=== PATIENT | male | born 1955 | race Caucasian/White ===

== ENCOUNTER 2023-10-14 10:18 | Emergency (ER) | payer MEDICARE, OTHER, SELFPAY ==
[2023-10-14 10:48] VITALS: BP 137/83
--- NOTE | 2023-10-14 11:35 | ED.GENMED ---
History of Present Illness
General
Chief Complaint: Skin Problem
Time Seen by Provider: 10/14/23 11:14
History of Present Illness
History of Present Illness:
68-year-old male presents the emergency department for evaluation of a 'abscess' in his rectal area that is been present for several months. States he has attempted to 'poke it' but it has not been successful. Denies any significant pain
Review of Systems
Review of Systems
Allergies reviewed?: Yes
All Other Systems: ROS reviewed and negative except as documented in HPI and ROS
Phy Exam
Physical Exam
Physical Exam:
GEN: Well appearing, NAD, WDWN
HEENT: Oral mucosa moist, no scleral icterus
Cardiac: Regular rate
Lung: No respiratory distress, no tachypnea
Rectal: Subcentimeter flesh-colored lesion to the left anus, nonfluctuant, nontender, no exudate present
MSK: No gross deformity or injuries
Skin: Good color, no pallor or jaundice, no rashes
Neuro: AO x3, moves all extremities freely
Psych: Calm, cooperative
Course
Vital Signs
Initial and Last Documented VS:
Initial Vital Signs
Temp Pulse Resp BP Pulse Ox
98.3 F 56 16 137/83 96
10/14/23 10:48 10/14/23 10:48 10/14/23 10:48 10/14/23 10:48 10/14/23 10:48
Last Documented Vital Signs
Temp Pulse Resp BP Pulse Ox
98.3 F 56 16 137/83 96
10/14/23 10:48 10/14/23 10:48 10/14/23 10:48 10/14/23 10:48 10/14/23 10:48
MDM/Problems Addressed
MDM/Problems Addressed:
Clearly not a perirectal abscess, would benefit from outpatient colorectal surgery evaluation
*Critical Care Note
Total Time (30-74mins, 75-104mins- exclusive of procedures): Not Applicable
ED Attending Note
-
Portions of this chart may have been created with voice recognition software.� Occasional wrong word or��sound alike� substitutions may have occurred due to the inherent limitations of voice recognition software.
Discharge Plan
Departure
Patient Disposition: Home (Routine Discharge)
Date of Disposition: 10/14/23
Time of Disposition: 11:35
Patient with high blood pressure during this ER visit?: No
Discharge Problem:
Abnormal skin growth
Prescriptions:
No Action
sildenafil [Viagra] 100 MG tablet
100 mg PO DAILY
apixaban [Eliquis] 5 MG tablet
5 mg PO BID Qty: 1 0RF
Referrals:
Wilian Rollins MD [Active] -
Activity Restrictions/Additional Instructions:
The growth on your anus does not appear to be an abscess. It may require excision by a surgeon. Please follow up with colorectal surgery as discussed
Interventions
Interventions:
*Risk Screen - Suicide Last Done: 10/14/23 10:48
*General Assessment Last Done: 10/14/23 10:48
*Neglect/Abuse Screening Last Done: 10/14/23 10:48
ED- Fall Risk Assessment Last Done: 10/14/23 11:42
*ED COVID-19 Vaccine History Last Done: 10/14/23 10:48
*Nursing Disposition Last Done: 10/14/23 11:42
ED-Skin Assessment Last Done: 10/14/23 11:42
Discharge Date and Time
Discharge Date/Time: 10/14/23 11:42
Print Language: AUSTRIAN
== END 2023-10-14 11:42 | disposition home or self-care (01) ==
LOC: EMR 10:18
PROVIDERS: EMERGENCY PHYSICIAN Emergency Medicine
DX: L98.8 Other specified disorders of the skin and subcutaneous tissue (principal)
CPT/HCPCS: 99282

== ENCOUNTER → 2024-05-02 07:08 | Outpatient (REF) | payer MEDICARE, OTHER, SELFPAY | LOC: RCS 07:08 | PROVIDERS: ATTENDING PHYSICIAN Physician Assistant Medical; FAMILY PHYSICIAN Family Medicine | DX: Z95.2 Presence of prosthetic heart valve (principal) | CPT/HCPCS: 93306 ==